=== PATIENT | female | born 1990 | race Caucasian/White ===

== ENCOUNTER 2024-07-27 14:46 | Inpatient (IN) | payer BC ==
[2024-07-27 15:18] VITALS: BMI 54.1
[2024-07-27] MEDS ORDERED: hydrALAZINE 20 MG/ML VIAL SLOW IVP PRN (16:35)
[2024-07-27] MEDS ORDERED: Promethazine HCl 25 MG/ML VIAL IM PRN ×2 (16:35→21:52)
[2024-07-27] MEDS ORDERED: Carboprost 250 MCG/ML AMP IM PRN (16:35)
[2024-07-27] MEDS ORDERED: Tranexamic Acid 1,000 MG/10 ML VIAL IVP PRN (16:35)
[2024-07-27] MEDS ORDERED: Misoprostol 200 MCG TAB PR PRN (16:35)
[2024-07-27] MEDS ORDERED: Ondansetron PF 4 MG/2 ML Vial IVP PRN ×2 (16:35→21:52)
[2024-07-27] MEDS ORDERED: Methylergonovine 0.2 MG/ML VIAL IM PRN (16:35)
[2024-07-27 16:51] LABS: Hemoglobin 11.4 g/dL (12.0-15.5); Mean Corpuscular HGB CONC 34.5 g/dL (32.0-36.0); Mean Corpuscular Hemoglobin 29.2 pg (27.0-33.0); Mean Corpuscular Volume 84.6 fL (81.6-98.3); Mean Platelet Volume 11.4 fL (7.4-10.4); Platelet Count 174 10x3/uL (150-450); RBC Distribution Width 13.4 % (11.5-14.5)
[2024-07-27 17:16] LABS: HBsAg Index 0.22 S/CO (0-0.99); HIV (1/2) Antibody/Antigen Non-Reactive (NonReactive); HIV 1/2 INDEX 0.13 S/CO (<1.00); Hep B Surf Ag - L&D Non-Reactive S/CO (NonReactive); Syphilis Antibody Nonreactive (Nonreactive); Syphilis Antibody Index 0.04 S/CO (<1.00 Non-Reactive)
[2024-07-27] MEDS: Oxytocin 30 units/NS 500 ML 500 ML IV SCH (20:51)
[2024-07-27] MEDS ORDERED: Lidocaine 1% (PF) 30 ML VIAL SC PRN (20:51)
[2024-07-27] MEDS ORDERED: Ibuprofen 800 MG TAB PO PRN (20:51)
[2024-07-27] MEDS ORDERED: Oxytocin 30 units/NS 500 ML 500 ML IV SCH (21:00)
[2024-07-27] MEDS: fentaNYL/Ropivacaine Epidural 100 ML ONE (21:34)
[2024-07-27] MEDS ORDERED: Acetaminophen 325 MG TAB PO PRN (21:52)
[2024-07-27] MEDS ORDERED: Naloxone HCl 0.4 mg/ml Vial IVP PRN ×2 (21:52)
[2024-07-27] MEDS ORDERED: ePHEDrine Sulfate 50 MG/10 ML VIAL SLOW IVP PRN (21:52)
[2024-07-27] MEDS ORDERED: diphenhydrAMINE 50 MG/ML VIAL IVP PRN (21:52)
[2024-07-27] MEDS ORDERED: Moisturizing Cream (Eucerin) 113 GM JAR TOP PRN (21:52)
[2024-07-27] MEDS ORDERED: Lactated Ringer's 500 ML IV PRN (21:52)
[2024-07-27] MEDS ORDERED: Communication Order-Pharmacy FS SCH (22:00)
[2024-07-27] MEDS ORDERED: fentaNYL 2 mcg/Ropivacaine 0.2% Epidural 100 ML CADD EPIDURAL SCH (22:00)
[2024-07-28] MEDS ORDERED: Famotidine/PF 20 mg/2ml Vial SLOW IVP PRN (05:22)
[2024-07-28] MEDS ORDERED: Bicitra 30 ML UDCUP PO PRN (05:22)
[2024-07-28] MEDS ORDERED: Azithromycin 500 MG in Sodium Chloride 0.9% 250 ML 250 ML IVPB SCH (05:30)
[2024-07-28] MEDS: CEFAZOLIN 2 GM in Sodium Chloride 0.9% 100 ML IVPB SCH ×2 (05:43→08:44)
[2024-07-28] MEDS ORDERED: hydrALAZINE 20 MG/ML VIAL SLOW IVP PRN (07:22)
[2024-07-28] MEDS ORDERED: Bisacodyl 10 MG SUPP PR PRN (07:22)
[2024-07-28 07:25] LABS: Analyzer IN Cardio CS NICU; RapidComm Collect By OR NURSE; pH (Cord, venous) 7.097 (7.250-7.350)
[2024-07-28 07:26] LABS: Analyzer IN Cardio CS NICU; RapidComm Collect By OR NURSE
[2024-07-28] MEDS ORDERED: Meperidine HCl/PF 25 MG (1 mL) VIAL SLOW IVP PRN (07:29)
[2024-07-28] MEDS ORDERED: Ondansetron PF 4 MG/2 ML Vial IVP PRN (07:29)
[2024-07-28] MEDS ORDERED: Naloxone HCl 0.4 mg/ml Vial IV PRN (07:29)
[2024-07-28] MEDS ORDERED: Promethazine HCl 25 MG/ML VIAL IM PRN (07:29)
[2024-07-28] MEDS ORDERED: Moisturizing Cream (Eucerin) 113 GM JAR TOP PRN (07:29)
[2024-07-28] MEDS ORDERED: diphenhydrAMINE 50 MG/ML VIAL IVP PRN (07:29)
[2024-07-28] MEDS ORDERED: Naloxone HCl 0.4 mg/ml Vial IVP PRN ×2 (07:29)
[2024-07-28] MEDS ORDERED: fentaNYL 50 mcg/mL 1 mL Vial SLOW IVP PRN (07:29)
[2024-07-28] MEDS ORDERED: Communication Order-Pharmacy FS SCH (07:30)
[2024-07-28] MEDS: EPINEPHrine 1 MG/ML VIAL ONE (08:10)
[2024-07-28] MEDS: Lidocaine 2% MPF 10 ML AMP (For Epidural Use) ONE (08:10)
[2024-07-28] MEDS: Azithromycin 500 MG VIAL ONE (08:10)
[2024-07-28] MEDS: Dexamethasone 10 MG/ML VIAL ONE (08:10)
[2024-07-28] MEDS: Morphine PF 10 MG/10 ML VIAL ONE (08:10)
[2024-07-28] MEDS: Dexmedetomidine 200 MCG/2 ML VIAL ONE (08:10)
[2024-07-28] MEDS: PHENYLEPHRINE-NS 100 MCG/ML 10 ML SYRINGE ONE (08:11)
[2024-07-28] MEDS: Tranexamic Acid 1,000 MG/10 ML VIAL ONE (08:11)
[2024-07-28] MEDS: ePHEDrine Sulfate 50 MG/10 ML VIAL ONE (08:11)
[2024-07-28] MEDS: Ondansetron PF 4 MG/2 ML Vial ONE (08:11)
[2024-07-28] MEDS: Oxytocin 10 UNITS/ML VIAL ONE ×2 (08:11)
[2024-07-28] MEDS: Ketorolac Tromethamine 30 MG (1 mL) VIAL IVP SCH (08:26)
[2024-07-28 08:55] LABS: D-Dimer Test 7.01 mcg/mL (0.19-0.50); INR-International Normal Ratio 0.9; PTT 25.4 sec (22.0-33.0); Prothrombin Time 10.3 sec (9.5-12.1)
[2024-07-28] MEDS ORDERED: Bupivacaine/Epinephrine 0.25% 30 ML VIAL ONE (09:00)
[2024-07-28 12:27] LABS: Hematocrit 31.3 % (34.9-44.5); Hemoglobin 10.3 g/dL (12.0-15.5); Mean Corpuscular HGB CONC 32.9 g/dL (32.0-36.0); Mean Corpuscular Hemoglobin 28.1 pg (27.0-33.0); Mean Corpuscular Volume 85.3 fL (81.6-98.3); Mean Platelet Volume 11.3 fL (7.4-10.4); Platelet Count 138 10x3/uL (150-450); RBC Distribution Width 13.5 % (11.5-14.5); Red Blood Cell (RBC) Count 3.67 10x6/uL (3.90-5.03); White Blood Cell (WBC) Count 14.8 10x3/uL (3.5-10.5)
[2024-07-28] MEDS: CEFAZOLIN 2 GM VIAL ONE (12:34)
[2024-07-28] MEDS: Docusate 100 MG CAP PO SCH (12:34)
[2024-07-28] MEDS: Boostrix 0.5 ML (Tdap) VIAL (>/=7 yrs of age) IM ONE (12:34)
[2024-07-28] MEDS: Ferrous Sulfate 325 MG TAB PO SCH (12:34)
[2024-07-28] MEDS: Ketorolac Tromethamine 30 MG (1 mL) VIAL IVP PRN (15:00)
[2024-07-28] MEDS: HYDROcodone/Acetaminophen 5/325 mg Tablet PO PRN (22:58)
[2024-07-29 05:23] LABS: Hematocrit 25.2 % (34.9-44.5); Hemoglobin 8.4 g/dL (12.0-15.5); Mean Corpuscular HGB CONC 33.3 g/dL (32.0-36.0); Mean Corpuscular Hemoglobin 28.8 pg (27.0-33.0); Mean Corpuscular Volume 86.3 fL (81.6-98.3); Mean Platelet Volume 11.2 fL (7.4-10.4); Platelet Count 123 10x3/uL (150-450); RBC Distribution Width 13.6 % (11.5-14.5); Red Blood Cell (RBC) Count 2.92 10x6/uL (3.90-5.03); White Blood Cell (WBC) Count 12.4 10x3/uL (3.5-10.5)
[2024-07-29] MEDS: Ibuprofen 800 MG TAB PO SCH (14:08)
[2024-07-29] MEDS: HYDROcodone/Acetaminophen 5/325 mg Tablet PO PRN (14:08)
[2024-07-29] MEDS: Simethicone Chewable 80 MG TAB PO PRN (21:18)
[2024-07-30] MEDS: Ondansetron PF 4 MG/2 ML Vial IVP PRN (05:55)
[2024-07-30 09:09] VITALS: BP 135/70; TEMP 98.2
[2024-07-30 09:32] LABS: #Basophils Less than 0.03 10x3/uL (0.0-0.2); #Eosinophils Less than 0.03 10x3/uL (0.0-0.5); #Monocytes 0.53 10x3/uL (0.0-1.1); #Neutrophils 16.35 10x3/uL (1.5-8.4); %Basophils 0.1 % (0.0-2.0); %Eosinophils 0.1 % (0.0-6.0); %Lymphocytes 3.5 % (18.0-47.0); %Neutrophils 91.8 % (40.0-75.0); Hemoglobin 8.6 g/dL (12.0-15.5); Mean Corpuscular HGB CONC 33.1 g/dL (32.0-36.0); Mean Corpuscular Hemoglobin 28.5 pg (27.0-33.0); Mean Corpuscular Volume 86.1 fL (81.6-98.3); Mean Platelet Volume 10.6 fL (7.4-10.4); Platelet Count 172 10x3/uL (150-450); RBC Distribution Width 14.1 % (11.5-14.5); Red Blood Cell (RBC) Count 3.02 10x6/uL (3.90-5.03); White Blood Cell (WBC) Count 17.79 10x3/uL (3.5-10.5)
[2024-07-30 13:03] LABS: Bilirubin Neg (Negative); Blood, Urine 150 (Negative); Clarity Slightly Cloudy (Clear); Glucose, Urine (Dipstick) Normal (Negative); Ketone, Urine Negative (Negative); Leukocyte 100 (Negative); Nitrite Negative (Negative); Protein, Urine (Dipstick) 30 mg/dl (Neg-Trace); Urobilinogen Normal mg/dL (Less than 2)
[2024-07-30 13:31] LABS: RBC/HPF Greater than 50 HPF (0-3); Squamous Epithelial Greater than 50 HPF (0-3); WBC/HPF Greater Than 50 HPF (0-3)
[2024-07-30 13:32] LABS: Bacteria/HPF 1+ HPF (None Seen)
== END 2024-07-30 15:10 | disposition home or self-care (01) | DRG 788 ==
LOC: CSHLD/OP 14:46 → CSHLD 16:01 → CSHPP 07-28 11:16
PROVIDERS: ADMIT Family Medicine; ATTEND Family Medicine
PROC: 10H07YZ Insertion of Other Device into Products of Conception, Via Natural or Artificial Opening (ICD-10-PCS; principal; 2024-07-27)
PROC: 10907ZC Drainage of Amniotic Fluid, Therapeutic from Products of Conception, Via Natural or Artificial Opening (ICD-10-PCS; 2024-07-27)
PROC: 10D00Z1 Extraction of Products of Conception, Low, Open Approach (ICD-10-PCS; 2024-07-28)
DX: O48.0 Post-term pregnancy (principal); Z3A.40 40 weeks gestation of pregnancy; Z37.0 Single live birth; Z79.899 Other long term (current) drug therapy; O77.0 Labor and delivery complicated by meconium in amniotic fluid; O76 Abnormality in fetal heart rate and rhythm complicating labor and delivery; O62.1 Secondary uterine inertia; O99.02 Anemia complicating childbirth; D64.9 Anemia, unspecified
CPT/HCPCS: 36415; 36416; 51702; 81001; 82805; 85025; 85027; 85049; 85300; 85362; 85384; 85610; 85730; 86780; 86850; 86900; 86901; 87086; 87340; 87389; 88307; 99285; J0171; J1100; J1885; J2274; J2405; J2590